=== PATIENT | female | born 1930 | race African-American/Black ===

== ENCOUNTER 2020-01-27 04:19 | Emergency (ER) | payer OTHER ==
[~2020-01-27] VITALS: Ht 172.7 cm; Wt 71.0 kg
[2020-01-27] MEDS ORDERED: SODIUM CHLORIDE 0.9% 1000ML BAG (SEPSIS BOLUS) IV ONE (05:00)
[2020-01-27 06:07] LABS: BASOPHILS % 0.6 % (0.0-2.0); EOSINOPHILS % 2.3 % (0.0-5.0); HEMATOCRIT. 30.1 % (36.0-48.0); HEMOGLOBIN. 10.2 g/dL (12.0-16.0); LYMPHOCYTES % 16.9 % (20.0-50.0); MEAN CORPUSCULAR HEMOGLOBIN 30.5 pg (28.0-32.0); MEAN CORPUSCULAR VOLUME 90.5 fL (81.0-99.0); MEAN PLATELET VOLUME 7.5 fl (7.4-10.4); MONOCYTES % 8.9 % (2.0-8.0); NEUTROPHILS % 71.3 % (40.0-76.0); PLATELET 154 x1000/uL (130-400); RED BLOOD CELL COUNT 3.33 mill/uL (4.2-5.4); RED CELL DISTRIBUTION WIDTH 17.2 % (11.6-14.6)
[2020-01-27 06:12] LABS: CHLORIDE 109 mEq/L (98-107)
[2020-01-27 06:13] LABS: INR 1.1; PARTIAL THROMBOPLASTIN TIME 26.6 sec (23.4-31.0); PROTHROMBIN TIME 12.1 sec (9.6-11.0)
[2020-01-27 09:15] LABS: CLARITY URINE TURBID (CLEAR); COLOR URINE DARK YELLOW (YELLOW); KETONES URINE 1+ (NEGATIVE); LEUKOCYTE ESTERASE URINE 1+ (NEGATIVE); NITRITE URINE NEGATIVE (NEGATIVE); OCCULT BLOOD URINE TRACE (NEGATIVE); PROTEIN URINE 2+ (NEGATIVE); SPECIFIC GRAVITY URINE 1.029 (1.005-1.030)
[2020-01-27] MEDS ORDERED: CEFTRIAXONE 1 G PREMIX 50 ML IV ONE (09:45)
[2020-01-27 13:45] VITALS: BP 120/66
[2020-01-30] MEDS ORDERED: FURO-152 MT (12:06)
[2020-01-30] MEDS ORDERED: PANT20TA3 MT (12:06)
[2020-01-30] MEDS ORDERED: LISI2.5T47 MT (12:06)
[2020-01-30] MEDS ORDERED: ATOR40TA70 MT (12:06)
[2020-01-30] MEDS ORDERED: FERR325T23 MT (12:06)
[2020-01-30] MEDS ORDERED: LEVO25TA7 PO (12:06)
[2020-01-30] MEDS ORDERED: CHOL200077 MT (12:06)
[2020-01-30] MEDS ORDERED: KEPP250 MT (12:06)
[2020-01-30] MEDS ORDERED: COR6 MT (12:06)
== END 2020-01-27 14:28 | disposition short-term general hospital (02) ==
LOC: ER 04:19
DX: N39.0 Urinary tract infection, site not specified (principal); E11.9 Type 2 diabetes mellitus without complications; I10 Essential (primary) hypertension; I25.2 Old myocardial infarction; Z86.73 Personal history of transient ischemic attack (TIA), and cerebral infarction without residual deficits; Z98.890 Other specified postprocedural states; Z88.6 Allergy status to analgesic agent
CPT/HCPCS: 36415; 71045; 80053; 81003; 82962; 83605; 83880; 84484; 85025; 85610; 85730; 87804; 93005; 93970; 96361; 96365; 96366; 99285; J0696; J7030

== ENCOUNTER 2020-02-05 15:58 | Emergency (ER) | payer OTHER ==
[~2020-02-05] VITALS: Ht 162.6 cm; Wt 86.0 kg
[~2020-02-05 15:58] MED LIST: ATOR40TA70 MT; CHOL200077 MT; COR6 MT; FERR325T23 MT; FURO-152 MT; KEPP250 MT; LEVO25TA7 PO; LISI2.5T47 MT; PANT20TA3 MT
[2020-02-05] MEDS ORDERED: SODIUM CHLORIDE 0.9% 1,000 ML IV ONE (18:53)
[2020-02-05 19:11] LABS: BASOPHILS % 0.7 % (0.0-2.0); EOSINOPHILS % 2.7 % (0.0-5.0); HEMATOCRIT. 31.1 % (36.0-48.0); HEMOGLOBIN. 10.4 g/dL (12.0-16.0); INR 1.1; LYMPHOCYTES % 22.5 % (20.0-50.0); MEAN CORPUSCULAR HEMOGLOBIN 31.2 pg (28.0-32.0); MEAN CORPUSCULAR VOLUME 93.4 fL (81.0-99.0); MEAN PLATELET VOLUME 7.8 fl (7.4-10.4); MONOCYTES % 7.2 % (2.0-8.0); NEUTROPHILS % 66.9 % (40.0-76.0); PLATELET 165 x1000/uL (130-400); PROTHROMBIN TIME 12.3 sec (9.6-11.0); RED BLOOD CELL COUNT 3.32 mill/uL (4.2-5.4); RED CELL DISTRIBUTION WIDTH 18.6 % (11.6-14.6)
[2020-02-05 19:15] LABS: CHLORIDE 110 mEq/L (98-107)
[2020-02-05 19:53] LABS: CLARITY URINE CLOUDY (CLEAR); COLOR URINE DARK YELLOW (YELLOW); KETONES URINE 1+ (NEGATIVE); LEUKOCYTE ESTERASE URINE 3+ (NEGATIVE); NITRITE URINE POSITIVE (NEGATIVE); OCCULT BLOOD URINE 1+ (NEGATIVE); PROTEIN URINE 1+ (NEGATIVE)
[2020-02-05] MEDS ORDERED: CEFTRIAXONE 1 G PREMIX 50 ML IV ONE (20:15)
[2020-02-05 22:41] VITALS: BP 153/74
== END 2020-02-05 23:00 | disposition short-term general hospital (02) ==
LOC: ER 15:58 → CANBEDREQ 02-06 02:15
DX: G93.40 Encephalopathy, unspecified (principal); N39.0 Urinary tract infection, site not specified; R53.1 Weakness; E11.9 Type 2 diabetes mellitus without complications; I10 Essential (primary) hypertension; I25.2 Old myocardial infarction; Z86.73 Personal history of transient ischemic attack (TIA), and cerebral infarction without residual deficits; Z88.8 Allergy status to other drugs, medicaments and biological substances; Z79.899 Other long term (current) drug therapy
CPT/HCPCS: 36415; 70450; 71045; 80053; 81003; 82962; 83605; 83690; 84145; 84484; 85025; 85610; 87040; 87077; 87086; 87186; 93005; 99285; J7030; J0696

== ENCOUNTER 2020-03-07 10:16 | Inpatient (IN) | payer OTHER ==
[~2020-03-07] VITALS: Ht 170.2 cm; Wt 74.8 kg
[2020-03-07] MEDS ORDERED: SODIUM CHLORIDE 0.9% 500 ML IV ONE ×2 (10:37→16:16)
[2020-03-07 11:34] LABS: BG BASE EXCESS -8.8 mmol/L (-2.0-2.0); BG CARBOXYHEMOGLOBIN 0.2 % (0.5-1.5); BG DEOXYHEMOGLOBIN 2.9 % (0.0-5.0); BG FRACTION INSPIRED OXYGEN 21; BG HCO3 ACT 14.5 mmol/L (22.0-26.0); BG METHEMOGLOBIN 0.7 % (0.0-1.5); BG OXYGEN SATURATION 97.1 % (92.0-98.5); BG OXYHEMOGLOBIN 96.2 % (94.0-97.0); BG PCO2 24.1 mmHg (35.0-45.0); BG PH 7.398 (7.350-7.450); BG PO2 112.6 mmHg (75.0-100.0); BG SAMPLE SITE RIGHT BRACHIAL; BG TOTAL HEMOGLOBIN 10.2 g/dL (12.0-18.0); BG VENT MODE ROOM AIR
[2020-03-07] MEDS ORDERED: LIDOCAINE HCL 1% 20ML VIAL (Pyxis) INJ ONE (13:27)
[2020-03-07] MEDS ORDERED: ZOLPIDEM TARTRATE 5MG TABLET PO PRN ×2 (13:30)
[2020-03-07] MEDS ORDERED: ENOXAPARIN 40MG/0.4ML SYR SUBCUT SCH (13:30)
[2020-03-07] MEDS ORDERED: ACETAMINOPHEN 325MG TABLET PO PRN ×2 (13:30)
[2020-03-07] MEDS ORDERED: ONDANSETRON HCL 4MG/2ML INJ IV PRN (13:30)
[2020-03-07] MEDS ORDERED: MAGNESIUM/ALUMINUM HYDROXIDE/SIMETHICONE 30ML UDC PO PRN (13:30)
[2020-03-07] MEDS ORDERED: CLONIDINE 0.1MG TABLET PO PRN (13:30)
[2020-03-07] MEDS ORDERED: GUAIFENESIN 200MG/10ML SUGAR FREE UDC PO PRN (13:30)
[2020-03-07] MEDS ORDERED: NITROGLYCERIN 0.4MG TABLET SL SL PRN (13:30)
[2020-03-07] MEDS ORDERED: IPRATROPIUM/ALBUTEROL 0.5-3(2.5)MG/3ML NEB ORI PRN (13:30)
[2020-03-07] MEDS ORDERED: KETOROLAC 15MG/ML VIAL IV PRN (13:30)
[2020-03-07] MEDS ORDERED: DOCUSATE SODIUM 100MG CAPSULE PO PRN (13:30)
[2020-03-07] MEDS ORDERED: TRAMADOL 50MG TABLET PO PRN (13:30)
[2020-03-07 13:54] LABS: CLARITY URINE CLOUDY (CLEAR); COLOR URINE DARK YELLOW (YELLOW); KETONES URINE TRACE (NEGATIVE); LEUKOCYTE ESTERASE URINE 3+ (NEGATIVE); NITRITE URINE NEGATIVE (NEGATIVE); OCCULT BLOOD URINE 1+ (NEGATIVE); PROTEIN URINE 2+ (NEGATIVE); SPECIFIC GRAVITY URINE 1.037 (1.005-1.030)
[2020-03-07 14:32] LABS: BASOPHILS % 0.4 % (0.0-2.0); EOSINOPHILS % 3.6 % (0.0-5.0); HEMATOCRIT. 27.1 % (36.0-48.0); LYMPHOCYTES % 9.6 % (20.0-50.0); MEAN CORPUSCULAR HEMOGLOBIN 30.8 pg (28.0-32.0); MEAN CORPUSCULAR VOLUME 93.1 fL (81.0-99.0); MEAN PLATELET VOLUME 7.2 fl (7.4-10.4); MONOCYTES % 6.7 % (2.0-8.0); NEUTROPHILS % 79.7 % (40.0-76.0); PLATELET 70 x1000/uL (130-400); RED BLOOD CELL COUNT 2.91 mill/uL (4.2-5.4); RED CELL DISTRIBUTION WIDTH 20.6 % (11.6-14.6)
[2020-03-07 14:40] LABS: CHLORIDE 113 mEq/L (98-107)
[2020-03-07 14:41] LABS: INR 1.2; PROTHROMBIN TIME 12.7 sec (9.6-11.0)
[2020-03-07 14:48] LABS: LDL CHOLESTEROL 73 mg/dL (5-100)
[2020-03-07 14:49] LABS: HDL CHOLESTEROL 36 mg/dL (40-59); T4 FREE 1.26 ng/dL (0.76-1.46)
[2020-03-07 14:51] LABS: CREATINE KINASE MB FRACTION 1.8 ng/mL (0.5-3.6)
[2020-03-07] MEDS ORDERED: CEFTRIAXONE 1 G PREMIX 50 ML IV ONE (16:15)
[2020-03-07] MEDS ORDERED: LEVOFLOXACIN 500MG PREMIX 100 ML IV SCH ×2 (17:30→20:45)
[2020-03-07] MEDS ORDERED: CARVEDILOL 3.125 MG TABLET PO SCH (20:30)
[2020-03-07] MEDS ORDERED: LEVETIRACETAM 250MG TABLET PO SCH (21:00)
[2020-03-07] MEDS: SODIUM CHLORIDE 0.9% 1,000 ML IV SCH (21:00)
[2020-03-07] MEDS ORDERED: LISINOPRIL 20MG TABLET PO SCH (21:00)
[2020-03-07 21:20] VITALS: BP 153/82
[2020-03-07 23:44] VITALS: BP 153/82
[2020-03-08 01:20] LABS: CREATINE KINASE MB FRACTION 2.6 ng/mL (0.5-3.6)
[2020-03-08] MEDS ORDERED: LEVOFLOXACIN 500MG PREMIX 100 ML IV SCH (02:00)
[2020-03-08] MEDS: SODIUM CHLORIDE 0.9% 1,000 ML IV SCH (03:30)
[2020-03-08 04:00] VITALS: BP 100/55
[2020-03-08] MEDS: CARVEDILOL 3.125 MG TABLET PO SCH ×2 (05:41→18:00)
[2020-03-08 07:15] LABS: BASOPHILS % 0.3 % (0.0-2.0); EOSINOPHILS % 2.7 % (0.0-5.0); HEMATOCRIT. 26.3 % (36.0-48.0); HEMOGLOBIN. 8.8 g/dL (12.0-16.0); MEAN CORPUSCULAR HEMOGLOBIN 31.4 pg (28.0-32.0); MEAN CORPUSCULAR VOLUME 93.8 fL (81.0-99.0); MEAN PLATELET VOLUME 7.4 fl (7.4-10.4); MONOCYTES % 6.1 % (2.0-8.0); NEUTROPHILS % 81.9 % (40.0-76.0); PLATELET 64 x1000/uL (130-400); RED CELL DISTRIBUTION WIDTH 20.4 % (11.6-14.6)
[2020-03-08 07:46] LABS: CHLORIDE 118 mEq/L (98-107)
[2020-03-08 08:00] VITALS: BP 134/63
[2020-03-08] MEDS: LEVETIRACETAM 250MG TABLET PO SCH ×2 (08:54→20:30)
[2020-03-08] MEDS: ASCORBIC ACID 500 MG TABLET PO SCH ×2 (08:54→20:30)
[2020-03-08] MEDS: LEVOTHYROXINE SODIUM 50MCG TABLET PO SCH (08:54)
[2020-03-08] MEDS: ZINC SULFATE 220 MG ( 50 ) CAPSULE PO SCH (08:57)
[2020-03-08 10:21] LABS: CREATINE KINASE 162 IU/L (26-192)
[2020-03-08] MEDS: SODIUM BICARBONATE 100 MEQ in DEXTROSE 5% WATER 1,000 ML IV SCH ×3 (11:55→21:56)
[2020-03-08 12:00] VITALS: BP 134/69
[2020-03-08 16:00] VITALS: BP 134/64
[2020-03-08] MEDS ORDERED: CEFTRIAXONE 1 G PREMIX 50 ML IV SCH (17:00)
[2020-03-08] MEDS: CEFTRIAXONE 1 G PREMIX 50 ML IV SCH ×2 (19:00→21:45)
[2020-03-08 20:00] VITALS: BP 143/74
[2020-03-08] MEDS: FAMOTIDINE 20MG TABLET PO SCH (20:31)
[2020-03-09] VITALS: BP 143/74
[2020-03-09 04:00] VITALS: BP 122/81
[2020-03-09] MEDS: LEVOTHYROXINE SODIUM 50MCG TABLET PO SCH (06:01)
[2020-03-09] MEDS: CARVEDILOL 3.125 MG TABLET PO SCH ×2 (06:02→17:57)
[2020-03-09 06:40] LABS: BASOPHILS % 0.3 % (0.0-2.0); EOSINOPHILS % 3.3 % (0.0-5.0); HEMATOCRIT. 22.5 % (36.0-48.0); HEMOGLOBIN. 7.5 g/dL (12.0-16.0); LYMPHOCYTES % 11.5 % (20.0-50.0); MEAN CORPUSCULAR HEMOGLOBIN 30.9 pg (28.0-32.0); MEAN CORPUSCULAR VOLUME 93.5 fL (81.0-99.0); MEAN PLATELET VOLUME 7.8 fl (7.4-10.4); MONOCYTES % 6.1 % (2.0-8.0); NEUTROPHILS % 78.8 % (40.0-76.0); RED BLOOD CELL COUNT 2.41 mill/uL (4.2-5.4); RED CELL DISTRIBUTION WIDTH 19.9 % (11.6-14.6)
[2020-03-09 06:56] LABS: PLATELET 48 x1000/uL (130-400)
[2020-03-09] MEDS: ZINC SULFATE 220 MG ( 50 ) CAPSULE PO SCH (09:26)
[2020-03-09] MEDS: LEVETIRACETAM 250MG TABLET PO SCH ×2 (09:27→20:22)
[2020-03-09] MEDS: ASCORBIC ACID 500 MG TABLET PO SCH ×2 (09:27→20:22)
[2020-03-09] MEDS ORDERED: POTASSIUM CHLORIDE 20MEQ/PACKET PO SCH (11:00)
[2020-03-09 12:00] VITALS: BP 121/84
[2020-03-09] MEDS ORDERED: KCL 20MEQ/100ML PREMIX 100 ML IV SCH (12:00)
[2020-03-09 16:00] VITALS: BP 121/84
[2020-03-09] MEDS: CEFTRIAXONE 1 G PREMIX 50 ML IV SCH (17:54)
[2020-03-09 20:00] VITALS: BP 94/70
[2020-03-09] MEDS: SODIUM BICARBONATE 100 MEQ in DEXTROSE 5% WATER 1,000 ML IV SCH (20:08)
[2020-03-09] MEDS: FAMOTIDINE 20MG TABLET PO SCH (20:22)
[2020-03-09 21:44] VITALS: BP 110/89
[2020-03-10] MEDS ORDERED: LEVOFLOXACIN 250MG PREMIX 50 ML IV SCH (02:00)
== END 2020-03-09 21:55 | disposition short-term general hospital (02) | DRG 871 ==
LOC: ER 10:16 → 7WST 13:17 → EDBEDREQ 13:23 → EDBEDREQTM 13:23 → EDBEDREQSVC 14:22 → ENRESERV 18:54 → 6EST 03-08 21:56
PROVIDERS: ADMIT Internal Medicine; ATTEND Internal Medicine
PROC: B54MZZA Ultrasonography of Right Upper Extremity Veins, Guidance (ICD-10-PCS; principal; 2020-03-07)
PROC: 05HY33Z Insertion of Infusion Device into Upper Vein, Percutaneous Approach (ICD-10-PCS; 2020-03-07)
DX: A41.50 Gram-negative sepsis, unspecified (principal); E43 Unspecified severe protein-calorie malnutrition; N17.0 Acute kidney failure with tubular necrosis; G92 Toxic encephalopathy; D61.818 Other pancytopenia; N39.0 Urinary tract infection, site not specified; E87.0 Hyperosmolality and hypernatremia; E87.2 Acidosis; E03.9 Hypothyroidism, unspecified; E11.9 Type 2 diabetes mellitus without complications; E78.00 Pure hypercholesterolemia, unspecified; E78.5 Hyperlipidemia, unspecified; E86.0 Dehydration; G40.909 Epilepsy, unspecified, not intractable, without status epilepticus; R62.7 Adult failure to thrive; Z20.828 Contact with and (suspected) exposure to other viral communicable diseases; E87.6 Hypokalemia; I10 Essential (primary) hypertension; I69.320 Aphasia following cerebral infarction; Z79.899 Other long term (current) drug therapy; Z88.6 Allergy status to analgesic agent; I25.2 Old myocardial infarction; Z68.25 Body mass index [BMI] 25.0-25.9, adult
CPT/HCPCS: 36415; 36600; 71045; 73100; 76937; 80048; 80053; 80061; 81003; 82375; 82550; 82553; 82805; 82962; 83036; 83605; 83735; 84100; 84145; 84439; 84443; 84484; 85025; 87077; 87186; 87635; 87804; 93005; 96365; 99285; C1725; J0696; J1956; J3480; J3490; J7030; J7070